=== PATIENT | male | born 1950 | race Caucasian/White ===

== ENCOUNTER 2019-12-31 13:59 | Emergency (ER) | payer BC, SELFPAY ==
--- NOTE | 2019-12-31 | RT.EKG_ITS ---
APPROVED REPORT Exam: Resting ECG HR:67 bpm ECG Measurements Heart Rate 67 AXES GA 152 P 28 QRSd 90 QRS 59 QT 353 T -5 QTc 373 <Conclusion> Sinus rhythm...normal P axis, V-rate 50- 99 Borderline T abnormalities, inferior leads...T flat/neg, II III aVF Baseline wander in lead(s) V2 Abnormal Electrocardiogram
--- NOTE | 2020-01-01 08:18 | W.ED.GENAD ---
Discharge Plan Disposition Patient Disposition: HOME Discharge Details Clinical Impression: Depression Primary Care Provider: Unknown,Unknown ED Provider: Provider,Temporary Home Meds and New Rx's Prescriptions: No Action zoster vaccine live (PF) [Zostavax (PF)] 19,400 UNIT/0.65 ML suspension for reconstitution 0.5 ml SQ ONCE Qty: 1 RF: 0 Discharge Data Discharge Date/Time-TO BE ENTERED AT DEPARTURE: 12/31/19 15:36 Medical Decision Making ECG Data Interpretation: HPI Related Data Home Medications Medication Instructions Recorded Confirmed zoster vaccine live (PF) [Zostavax 0.5 ml SQ ONCE #1 vial 12/03/17 Vial] Previous Rx's Medication Instructions Recorded zoster vaccine live (PF) [Zostavax 0.5 ml SQ ONCE #1 vial 12/03/17 Vial]
== END 2019-12-31 15:36 | disposition home or self-care (01) ==
LOC: ER 14:01
DX: R69 Illness, unspecified (principal)
CPT/HCPCS: 93005; 93010

== ENCOUNTER 2020-06-01 14:53 | Outpatient (RCR) | payer BC, SELFPAY | END 2020-06-28 23:59 | disposition home or self-care (01) | LOC: RT 14:53 | CPT/HCPCS: 93225 ==